=== PATIENT | female | born 1950 | race Caucasian/White ===

== ENCOUNTER 2017-11-28 12:27 | Emergency (ER) | payer SELFPAY ==
[~2017-11-28] VITALS: Ht 162.6 cm; Wt 149.7 kg
[2017-11-28] MEDS ORDERED: METOPROLOL SUCC25 MG PO (12:35)
[2017-11-28] MEDS ORDERED: COUMADIN1 MG PO (12:35)
[2017-11-28] MEDS ORDERED: PRAVASTATIN SOD10 MG PO (12:35)
[2017-11-28] MEDS ORDERED: LOSARTAN POTASS25 MG PO (12:35)
== END 2017-11-28 12:48 | disposition home or self-care (01) ==
LOC: ED 12:27
DX: R21 Rash and other nonspecific skin eruption (principal)